=== PATIENT | female | born 2005 | race Caucasian/White ===

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

== ENCOUNTER 2025-01-31 17:07 | Observation (INO) | payer MEDICAID, SELFPAY ==
[2025-01-31 17:21] VITALS: TEMP 36.9; BMI 23.6
[2025-01-31 17:22] VITALS: BP 121/61; PULSE 74; RESP 18; RESP 99; TEMP 36.9
[2025-01-31 17:41] VITALS: BP 116/71; PULSE 80
[2025-01-31 18:03] LABS: ROM Kit Lot # 57801027; ROM Swab Mixed By: NUNEEE1; Rupture of Fetal Membranes Negative (Negative); Swb Mxed in Solvent 1 min? Yes
--- NOTE | 2025-01-31 18:22 | PD.LDPN ---
Documentation for date of: 01/31/25 OB Labor Progress Note Assessment and Plan Comments: Cheyenne is a 19yo with SIUP at 25+wk presenting to L&D from office visit where she endorsed uncertainty whether vaginal discharge was normal or could possibly be amniotic fluid. She notes discharge is clear and mucousy. She notes no painful/regular ctx, no vaginal bleeding. Normal movement. Current : This has been complicated by subchorionic hematoma in 1st trimester and she has had OB care, but insufficient visits. Hasn't had antomy scan yet. ROS negative other than what was described above. Vitals wnl, afebrile General: well developed, well nourished, no acute distress, conversant Cardiac: normal heart rate Lungs: breathing without distress Abdomen: soft, gravid, non-tender, no rebound or guarding Extremities: no pain with palpation of calves Per RN: No gross leakage of fluid or pooling with collection of AmniSure NST: Reassuring for gestational age, +accels, 1 small variable decel, mod jose[employer]: no ctx Bedside ultrasound performed by Dr. Ray: SIUP with transverse presentation ( head on maternal right side), +FCA, very active FM, anterior placenta, visually adequate fluid Labs: AmniSure ROM Test: Negative Assessment: Cheyenne is a 19yo with SIUP at 25+wk with no evidence of PPROM. Vitals wnl, benign exam. Reassuring status. Plan: -Discussed findings and diagnosis with patient and support person, answered all questions to their apparent satisfaction -Continue routine follow up with OBGYN, anatomy scan as scheduled -Discussed return precautions. Michela Ray MD
== END 2025-01-31 18:25 | disposition home or self-care (01) ==
PROVIDERS: Admitting Provider Obstetrics & Gynecology; Visit Provider Obstetrics & Gynecology
DX: Z34.82 Encounter for supervision of other normal pregnancy, second trimester (principal); Z3A.25 25 weeks gestation of pregnancy
CPT/HCPCS: 59899; 84112

== ENCOUNTER 2025-02-22 21:18 | Observation (INO) | payer MEDICAID, SELFPAY ==
[2025-02-22 21:31] VITALS: BMI 24.7
[2025-02-22 21:37] VITALS: BP 121/64; PULSE 88; RESP 16; RESP 97; TEMP 37
--- NOTE | 2025-02-22 22:01 | XR_ITS ---
Examination: Complete OB ultrasound greater than 14 weeks Date and time of exam: February 22, 2025 1013 hours INDICATIONS: Abdominal pain and back pain beginning one hour ago Findings: Viable intrauterine single fetus with single amniotic sac presentation cephalic Cardiac motion 145 BPM Placenta anterior grade 2 Umbilical cord insertion 3 vessel seen Amniotic fluid adequate spine maternal left Cervix 3.5 cm Ovaries obscured by gas. Composite estimated gestational age based on BPD, head circumference, abdominal circumference, femur length is 29 weeks 1 day Estimated weight 1318 g. Survey of intracranial anatomy, spinal anatomy, abdominal anatomy, four-chamber heart performed with no abnormalities identified. Impression: Viable intrauterine gestation cephalic presentation Estimated gestational age 29 weeks 1 day.
--- NOTE | 2025-02-22 22:02 | XR_ITS ---
Examination: Transvaginal ultrasound of the pelvis, Limited Technique: Transvaginal sonographic images pelvis performed using restrepo scale imaging Exam date and time: February 22, 2025 1026 hours INDICATIONS: Abdominal pain and back pain beginning one hour ago FINDINGS: Cervix 3.4 cm with minimal fluid IMPRESSION: Cervix 3.4 cm with minimal fluid
[2025-02-22 22:13] LABS: Collection Type, Urine Clean Catch
[2025-02-22 22:35] VITALS: TEMP 37
[2025-02-22 22:36] LABS: Bacteria,Urine 1+; Bilirubin,Urine Negative (Negative); Blood,Urine Negative (Negative); Clarity,Urine Clear (Clear/Hazy); Color,Urine Lt-Yellow (Lt Yel-Yel); Glucose, Urine Negative (Negative); Ketones,Urine Negative (Negative); Leukocyte Esterase,Urine Positive (Negative); Nitrite,Urine Negative (Negative); PH,Urine 6.5 (5.0-7.0); Protein,Urine Trace (Neg - Trace); RBC,Urine 4 /hpf (0-3); Specific Gravity,Urine 1.022 (1.001-1.035); Squamous Epithelial Cell,Urine 5 /hpf (0-5); Urobilinogen,Urine Negative mg/dL (0.0-1.0); WBC,Urine 12 /hpf (0-5)
[2025-02-23] MEDS: cephALEXin 250 MG CAPSULE 500 MG PO (00:56)
== END 2025-02-23 01:06 | disposition home or self-care (01) ==
PROVIDERS: Admitting Provider Obstetrics & Gynecology; Visit Provider Obstetrics & Gynecology
DX: O26.893 Other specified pregnancy related conditions, third trimester (principal); M54.9 Dorsalgia, unspecified; R10.9 Unspecified abdominal pain; Z3A.29 29 weeks gestation of pregnancy
CPT/HCPCS: 59025; 59899; 76805; 76830; 81001; A9270

== ENCOUNTER 2025-03-29 14:37 | Observation (INO) | payer MEDICAID, SELFPAY ==
[2025-03-29 14:53] VITALS: BP 129/75; PULSE 108
[2025-03-29 15:00] VITALS: PULSE 115; O2SAT 97
[2025-03-29 15:05] VITALS: PULSE 105; O2SAT 98
[2025-03-29 15:10] VITALS: PULSE 104; O2SAT 98
[2025-03-29 15:19] VITALS: BP 129/75; PULSE 100; RESP 16; RESP 97; TEMP 36.8; O2SAT 97; BMI 25.7
== END 2025-03-29 15:41 | disposition home or self-care (01) ==
PROVIDERS: Admitting Provider Student in an Organized Health Care Education/Training Program; Visit Provider Student in an Organized Health Care Education/Training Program
DX: O26.893 Other specified pregnancy related conditions, third trimester (principal); Z3A.33 33 weeks gestation of pregnancy; R10.2 Pelvic and perineal pain
CPT/HCPCS: 59025; 59899

== ENCOUNTER 2025-04-12 14:55 | Outpatient (CLI) | payer MEDICAID, SELFPAY ==
[2025-04-12] VITALS (10 sets, daily range): BP systolic 119; BP diastolic 63; PULSE 72–98; RESP 18–98; TEMP 36.7; O2SAT 97–98; BMI 26.7
--- NOTE | 2025-04-12 15:05 | XR_ITS ---
Examination: Biophysical profile, ultrasound Date and time of exam: April 12, 2025 1558 hours INDICATIONS: Diagnosis cholestasis of Technique: Multiple transabdominal sonographic images of the pelvis abdomen obtained. Attention is directed to the breathing movement, gross body movement, amniotic fluid volume and tone. Findings: Amniotic fluid index 11 cm Total biophysical profile is 8 of 8. breathing movement is 2. Gross body movement is 2. tone is 2. Qualitative amniotic fluid volume is 2 Impression: Biophysical profile is 8 of 8.
== END 2025-04-12 16:35 | disposition home or self-care (01) ==
LOC: S4S1 14:58 → S4SX 14:58
PROVIDERS: PCP Student in an Organized Health Care Education/Training Program; Referring Provider Student in an Organized Health Care Education/Training Program; Visit Provider Student in an Organized Health Care Education/Training Program
DX: O26.643 Intrahepatic cholestasis of pregnancy, third trimester (principal); Z3A.33 33 weeks gestation of pregnancy
CPT/HCPCS: 59025; 76819

== ENCOUNTER 2025-04-20 14:24 | Outpatient (CLI) | payer MEDICAID, SELFPAY ==
[2025-04-20] VITALS (12 sets, daily range): BP systolic 92; BP diastolic 54; PULSE 84–106; RESP 16–99; TEMP 36.7; O2SAT 96–99; BMI 26.4
== END 2025-04-20 15:15 | disposition home or self-care (01) ==
LOC: S4S1 14:24 → S4SX 14:25
PROVIDERS: Referring Provider Obstetrics & Gynecology; Visit Provider Obstetrics & Gynecology
DX: O26.643 Intrahepatic cholestasis of pregnancy, third trimester (principal); K76.89 Other specified diseases of liver; Z3A.36 36 weeks gestation of pregnancy
CPT/HCPCS: 59025

== ENCOUNTER 2025-04-27 06:26 | Inpatient (IN) | payer MEDICAID, SELFPAY ==
[2025-04-27] VITALS (259 sets, daily range): BP systolic 95–142; BP diastolic 48–82; PULSE 60–155; RESP 16–97; TEMP 36.5–37.4; O2SAT 76–100; BMI 26.7
[2025-04-27 07:03] LABS: ROM Kit Lot # 578010271; Swb Mxed in Solvent 1 min? Yes
[2025-04-27 07:04] LABS: ROM Swab Mixed By: RAWLT; Rupture of Fetal Membranes Positive (Negative)
[2025-04-27] MEDS: Ampicillin Inj 2,000 MG in SODIUM CHLORIDE 0.9% (POP) 100 ML 100 MG IV (08:09)
[2025-04-27 08:17] LABS: Basophils % (Auto) 0 % (0-2.5); Eosinophils # (Auto) 0.1 Thou/mm3 (0.0-0.5); Eosinophils % (Auto) 1 % (0-10); Hematocrit 32.2 % (36.0-46.0); Hemoglobin 11.3 g/dL (12.0-16.0); Immature Granulocytes % (Auto) 2 % (0-0); Immature Granulocytes Auto 0.16 Thou/mm3 (0.00-0.00); Lymphocytes # (Auto) 2.2 Thou/mm3 (1.0-4.8); Lymphocytes % (Auto) 22 % (10-50); Mean Corpuscular HGB Conc 35.1 g/dl (31.0-37.0); Mean Corpuscular Hemoglobin 29.7 pg (25.0-35.0); Mean Corpuscular Volume 85 fL (80-100); Monocytes # (Auto) 0.8 Thou/mm3 (0.0-0.8); Monocytes % (Auto) 8 % (0-12); Neutrophils % (Auto) 68 % (37-80); Nucleated Red Blood Cell % 0 /100 WBC (0); Platelet Count 250 Thou/mm3 (140-440); RDW Standard Deviation 37.4 fL (36.4-46.3); White Blood Count 10.3 Thou/mm3 (4.5-11.0)
--- NOTE | 2025-04-27 08:23 | PD.LDHP ---
Documentation for date of: 04/27/25 OB Labor/Induct. HPI History of Present Illness Chief complaint: Ruptured membranes at 5 this morning : 2 Para: 1 Term pregnancies: 1 pregnancies: 0 Living children: 0 History of Abortions: Spontaneous and Elective: 0 History of Vaginal deliveries: 1 History of sections: No History of : No TRINA: 05/15/25 Gestational Age (weeks): 37 Gestational Age (days): 4 History of present illness: The patient is a 20-year-old -0-0-1 status post vaginal delivery in 2021. Her delivery was performed by a glass curvature gauger. We do have her delivery notes on the chart. Her delivery was complicated by sounds like a minor shoulder dystocia she had a medial lateral episiotomy performed. Patient is present with her [id number] who is at nursing school. We did discuss shoulder dystocia the fact that the only treatment for a shoulder dystocia is a . That having a prior just shoulder dystocia is a risk for another shoulder dystocia . Patient declines a and desires to proceed with labor. We will check an ultrasound on admission to check baby size. The first baby was born 4 days after the due date weighing 7 pounds 4 ounces this baby is only 37-4/7 weeks so were hoping for a smaller baby. Patient states she ruptured her membranes at 5 in the morning clear fluid and has not had a whole lot of contractions. Her Pap she is positive for group B strep. Her cervical exam on admission to triage was 3 cm dilated 60% effaced -2 station. History of Present Dating criteria: LMP confirmed by 2nd trimester US Adequate Care: No (limited) Obstetrical complications: other (History of shoulder dystocia) Medical complications: none Labs Maternal Blood Type: O Pos Labs: Positive: Rubella Titre and Group Beta Strep (Positive group B strep), Negative: RPR, Hepatitis B, HIV, Chlamydia and Gonorrhea and Unknown: Herpes Type 1, Herpes Type 2 and Covid-19 Past Medical History Surgical History SURGICAL: Negative Section Meds Home Medications and Allergies Home Medications ?Medication ?Instructions ?Recorded ?Confirmed ?Type vits no.130-ferrous fum 1 tab PO QDAY 03/29/25 04/27/25 History 27 mg iron-folic acid 800 mcg tablet ( Vitamin) Allergies Allergy/AdvReac Type Severity Reaction Status Date / Time No Known Allergies Allergy Verified 04/27/25 08:17 OB Exam Physical Exam Vital signs: Temp Pulse Resp BP Pulse Ox 98.4 F 73 16 118/60 96 04/27/25 06:45 04/27/25 07:38 04/27/25 06:45 04/27/25 07:38 04/27/25 08:21 Routine Abdominal Exam Abdominal: Present soft Detailed Labor and Delivery Exam Effacement (%): 60 Cervix position: posterior station: -2 Consistency: medium Presentation: Vertex Membranes: ruptured Amniotic fluid: clear monitor accelerations: 15x15 monitor decelerations: None pants presser variability: Moderate (11-25) Contraction frequency (min): Irregular OB Results Labs 04/27/25 08:00 Labs: Short CBC 04/27/25 Range/Units 08:00 WBC 10.3 (4.5-11.0) Thou/mm3 Hgb 11.3 L (12.0-16.0) g/dL Hct 32.2 L (36.0-46.0) % Plt Count 250 (140-440) Thou/mm3 OB Assessment & Plan Assessment and Plan (1) Supervision of high risk in third trimester: Status: Acute (2) History of shoulder dystocia in prior : Status: Acute Assessment and plan: Patient offered a primary low-transverse section to prevent another shoulder dystocia and declines we will have extra staff in the delivery room along with the NICU team at delivery (3) Mother positive for group B Streptococcus colonization: Status: Acute Assessment and plan: Ruptured membranes at 5 in the morning. Ampicillin started. Additional Plan Plan: augmentation and anticipate NVD Additional Plan Comment: Augment if patient does not make cervical change. Right now start antibiotics. Anticipate possibility of a second shoulder dystocia at delivery. An ultrasound was ordered on admission to check EFW. By Micha'gilberto approximately a 7 pound baby.
[2025-04-27 08:54] LABS: Syphilis Nonreactive (Nonreactive)
--- NOTE | 2025-04-27 10:42 | XR_ITS ---
Examination: age Limited TECHNIQUE: Limited transabdominal sonographic images pelvis Date and time: April 27, 2025 1113 hours INDICATIONS: Diagnosis cholestasis of FINDINGS: Viable intrauterine gestation cephalic presentation spine maternal left Cardiac motion 136 BPM Estimated weight 3276 g Estimated gestational age 37 weeks 5 days Amniotic fluid index 16 cm IMPRESSION: Viable intrauterine gestation cephalic presentation
[2025-04-27] MEDS: Ampicillin Inj 1,000 MG in SODIUM CHLORIDE 0.9% (Popper) 50 ML 50 MG IV ×3 (12:42→21:02)
[2025-04-27] MEDS: OXYTOCIN in NS 30 units 30 UNIT/500 ML BAG IV (12:44)
[2025-04-27 16:22] LABS: Amphetamine/Metham Scrn,Ur OB Negative (Negative); Benzoylecgonine Screen, Ur OB Negative (Negative); Opiate Screen,Urine OB Negative (Negative); THC Screen,Urine OB Negative (Negative)
--- NOTE | 2025-04-27 18:56 | PD.LDPN ---
Documentation for date of: 04/27/25 OB Labor Progress Note Pain Control Pain control: epidural Pelvic Exam Dilation (cm): 4.5 Effacement (%): 70 station: -2 Amniotic membrane status: Leaking Contractions Monitor mode: External Contraction frequency: 3-4 Contraction intensity: Mild Status status: Category l Assessment and Plan Plan OB labor note: continuous present management and begin Pitocin augmentation (Place IUPC, continue pitocin augmentation)
[2025-04-27] MEDS: RINGERS LACTATED 1000 ML 1,000 ML 100 ML IV (19:00)
[2025-04-27] MEDS: OXYTOCIN in NS 20 units 20 UNIT/1,000 ML BAG 125 UNIT IV (22:29)
[2025-04-27] MEDS: IBUPROFEN TAB 400 MG TABLET 800 MG PO (23:13)
[2025-04-28] VITALS (10 sets, daily range): BP systolic 103–138; BP diastolic 42–77; PULSE 63–98; RESP 14–19; TEMP 36.5–36.9; O2SAT 96–97
[2025-04-28] MEDS: ACETAMINOPHEN 325 MG TABLET 650 MG PO ×2 (04:42→13:07)
[2025-04-28 06:06] LABS: Basophils # (Auto) 0.1 Thou/mm3 (0.0-0.2); Basophils % (Auto) 1 % (0-2.5); Eosinophils # (Auto) 0.1 Thou/mm3 (0.0-0.5); Eosinophils % (Auto) 1 % (0-10); Hematocrit 34.6 % (36.0-46.0); Hemoglobin 11.5 g/dL (12.0-16.0); Immature Granulocytes % (Auto) 1 % (0-0); Immature Granulocytes Auto 0.09 Thou/mm3 (0.00-0.00); Lymphocytes # (Auto) 2.6 Thou/mm3 (1.0-4.8); Lymphocytes % (Auto) 20 % (10-50); Mean Corpuscular HGB Conc 33.2 g/dl (31.0-37.0); Mean Corpuscular Hemoglobin 29.3 pg (25.0-35.0); Mean Corpuscular Volume 88 fL (80-100); Monocytes # (Auto) 0.8 Thou/mm3 (0.0-0.8); Monocytes % (Auto) 6 % (0-12); Neutrophils # (Auto) 9.5 Thou/mm3 (1.8-7.7); Neutrophils % (Auto) 72 % (37-80); Nucleated Red Blood Cell % 0 /100 WBC (0); Platelet Count 242 Thou/mm3 (140-440); RDW Standard Deviation 39.2 fL (36.4-46.3); Red Blood Count 3.92 Miln/mm3 (4.00-5.20); White Blood Count 13.1 Thou/mm3 (4.5-11.0)
[2025-04-28] MEDS: IBUPROFEN TAB 400 MG TABLET 800 MG PO ×2 (08:32→18:40)
[2025-04-28] MEDS: HYDROcodone/APAP 5/325 TABLET 1 TAB PO (14:34)
[2025-04-28] MEDS: BENZO/LANO/ALOE (Dermoplast) 60 GM CAN 1 SPRAY TOP (19:41)
[2025-04-29] MEDS: ACETAMINOPHEN 325 MG TABLET 650 MG PO (00:24)
[2025-04-29] MEDS: IBUPROFEN TAB 400 MG TABLET 800 MG PO ×2 (02:21→09:55)
[2025-04-29 04:00] VITALS: BP 105/57; PULSE 56; RESP 16; TEMP 36.4; O2SAT 97
[2025-04-29 07:30] VITALS: BP 110/70; PULSE 60; RESP 16; TEMP 36.4; O2SAT 98
--- NOTE | 2025-04-29 08:01 | PD.LDPPPRG ---
Subjective Subjective Interval history: Patient denies any problem complaint Exam Vital Signs Temp Pulse Resp BP Pulse Ox O2 Del Method 97.6 F 56 L 16 105/57 L 97 Room Air 04/29/25 04:00 04/29/25 04:00 04/29/25 04:00 04/29/25 04:00 04/29/25 04:00 04/29/25 04:00 Objective Labs 04/28/25 04:27 Impressions Impression: day #2 status post vaginal delivery Discharge home Discharge instructions given Follow-up in the office in 6 weeks Assessment & Plan Problem List (1) Supervision of high risk in third trimester: Status: Acute (2) History of shoulder dystocia in prior : Status: Acute (3) Mother positive for group B Streptococcus colonization: Status: Acute Time Spent With Patient Time: Total time spent is greater than 50% in coordination of care (as documented) at patient's floor/unit and/or counseling patient:
--- NOTE | 2025-04-29 09:45 | OBDSUM_ITS ---
Data ([place]) Data Hx Section: No Maternal Blood Type: O Pos Rubella Titre: Positive RPR: Non-reactive Labs: Positive: Group Beta Strep, Negative: RPR, Hepatitis B, HIV, Chlamydia and Gonorrhea and Unknown: Herpes Type 1 and Herpes Type 2 : 2 Term: 1 : 0 Livin Abortions: Spontaneous & Theraputic: 0 Delivery Data ([place]) Labor Data Initiation of labor: Augmentation Induction/Augmentation Agent: Pitocin ROM date: 04/27/25 ROM time: 05:00 Amniotic membrane rupture type: Spontaneous Amniotic fluid description: Clear Delivery Data EDC: 05/15/25 EDC calculated by:: LMP Date of arrival to unit: 04/27/25 Time of arrival to unit: 07:15 Onset of labor date: 04/27/25 Onset of labor time: 18:30 Complete dilation date: 04/27/25 Complete dilation time: 21:48 delivery date: 04/27/25 [place] delivery time: 22:29 Gestational age (weeks): 37 Gestational age (days): 4 Placenta delivery date: 04/27/25 Placenta delivery time: 22:32 Stage 1 total time: Labor - Stage 1 Duration 3 hours and 18 minutes Delivered by: [facility] ([facility]) Delivery nurse: Jose Ortiz RN [place] nurse: Treva TURNER Insole Stiffener at delivery: No Support person(s) at delivery: FOB, maternal mother Other staff at delivery: HELENA TURNER, Sonny Nicholas RNC. Delivery Method Delivery method: Normal Vaginal Delivery Presentation: Vertex position: OA Anesthesia Type Anesthesia Type: Epidural Anesthesia type: Epidural Placenta Placenta delivery description: Spontaneous Cord blood sent to lab: Yes cord blood collection: Cord Blood Type Episiotomy Episiotomy description: None EBL Estimated blood loss (ml): 200 Umbilical Cord cord description: 3 Vessels, Nuchal Cord and Loose Additional Procedures The patient progressed to complete and was set up for delivery. The NICU team was called for a potential shoulder dystocia. The patient pushed through two UCs and delivered without complications. The baby delivered in the OA position and had a loose nuchal cord times one which was reduced. The baby was delivered atraumatically. The placenta followed within 5 minutes with gentle traction on the cord. The patient delivered over an intact perineum. Findings: Liveborn male in the ANDREY position with a loose nuchal cord times one. No meconium. Apgars 8 and 9. Weight 7 lbs 3 oz. Complications Complications: None [place] Data ([place]) [place] Data [place]'s gender: Male Identification band number: [id number] weight (gms): 3270 g Weight (pounds): 7 lbs and 3.3 ozs 1 minute: 8 5 minutes: 9
--- NOTE | 2025-04-29 11:17 | PC.NURSE ---
PATIENT REPORTS A RETAIL AND RESTAURANT ASSOCIATE DID GO IN AND SEE HER DURING HER STAY AND PROVIDED HER WITH RESOURCES. RN ON 04/28/25 ALSO REPORTS PRODUCT RESPONSIBILITY LIAISON SEEN PATIENT 04/28/25
== END 2025-04-29 10:00 | disposition home or self-care (01) | DRG 560 ==
LOC: S4SX 13:55 → S4NX 04-28 04:03
PROVIDERS: Obstetrics & Gynecology; Admitting Provider Obstetrics & Gynecology; Visit Provider Specialist
DX: O42.02 Full-term premature rupture of membranes, onset of labor within 24 hours of rupture (principal); O69.81X0 Labor and delivery complicated by cord around neck, without compression, not applicable or unspecified; O99.824 Streptococcus B carrier state complicating childbirth; Z87.59 Personal history of other complications of pregnancy, childbirth and the puerperium; Z37.0 Single live birth; Z3A.37 37 weeks gestation of pregnancy
CPT/HCPCS: 36415; 59409; 76815; 80307; 84112; 85025; 86780; 86850; 86900; 86901; 94762; J0290; J2590; J2795; J3010; J7050; J7120; A9270